=== PATIENT | male | born 1980 | race American Indian/Alaskan Native ===

== ENCOUNTER 2017-09-03 20:19 | Emergency (ER) | payer OTHER ==
[2017-09-03] MEDS ORDERED: NACL 0.9% 1000 ML 1,000 ML IV ONE (20:50)
[2017-09-03] MEDS ORDERED: D50W (25GM) Syringe IV ONE (21:00)
[2017-09-03] MEDS ORDERED: D50W (25GM) Vial IV ONE (21:00)
[2017-09-03 21:24] LABS: Urine Drugs of Abuse Note Disclamer
[2017-09-03] MEDS ORDERED: D50W (25GM) Vial 50 ML IV ONE (21:33)
[2017-09-03 21:38] LABS: Bacteria,Urine 1+ /HPF (Negative); Bilirubin,Urine NEG (Negative); Blood,Urine NEG (Negative); Ketones,Urine TR mg/dL (Negative); Leukocyte Esterase,Urine NEG (Negative); Mucus,Urine 2+ /HPF; Nitrite,Urine NEG (Negative); Urobilinogen,Urine < 2.0 mg/dL (<2.0)
[2017-09-03 21:40] LABS: Basophils % (Auto) 0.5 % (0.0-1.8); Eosinophils % (Auto) 0.6 % (0.0-4.3); Hematocrit 37.6 % (35.5-45.6); Hemoglobin 12.6 gm/dl (11.8-15.2); Mean Corpuscular HGB Conc 34 % (32-34); Mean Corpuscular Hemoglobin 30 pg (28-32); Mean Corpuscular Volume 90 fl (84-94); Platelet Count 374 K/mm3 (140-440); Red Blood Count 4.19 M/mm3 (3.65-5.03); Red Cell Distribution Width 14.7 % (13.2-15.2)
[2017-09-03 21:47] LABS: Alanine Aminotransferase 15 units/L (7-56); Albumin 4.5 g/dL (3.9-5); Albumin/Globulin Ratio 1.7 %; Alkaline Phosphatase 65 units/L (35-129); Anion Gap 19 mmol/L; BUN/Creatinine Ratio 20; Blood Urea Nitrogen 14 mg/dL (9-20); Calcium 9.5 mg/dL (8.4-10.2); Carbon Dioxide 26 mmol/L (22-30); Potassium 3.8 mmol/L (3.6-5.0); Sodium 148 mmol/L (137-145); Total Protein 7.1 g/dL (6.3-8.2)
[2017-09-03 21:50] LABS: Glucose 23 mg/dL (75-100)
[2017-09-04] MEDS ORDERED: XYLOCAINE 1% MPF 5 mL INFILTRATI ONE (00:25)
[2017-09-04] MEDS ORDERED: ROCEPHIN IM ONE (00:25)
--- NOTE | 2017-09-04 00:38 | Emergency Department Report ---
History of Present Illness - General Chief Complaint: Overdose Stated Complaint: OVERDOSE Time Seen by Provider: 09/03/17 21:53 Source: patient, family, EMS Mode of arrival: Stretcher Limitations: Altered Mental Status - History of Present Illness Initial Comments: Patient with cocaine use for twelve hours but was seen unconscious by father at which time EMS was called and narcan x 3 was given. Blood glucose was also in the teens on arrival. Upon arrival here his glucose was in the 20s and we gave glucagon. His glucose increased to the low 100s. -: This evening Intent: other (No suicide attempt.) How Overdose Was Discovered: family/friend present Context: Accidental Overdose: wanted to get high Associated Symptoms: palpitations Treatments Prior to Arrival: narcan - Related Data Previous Rx's Medication Instructions Recorded Last Taken Type Cephalexin [Keflex] 500 mg PO Q8HR 10 Days #30 cap 09/04/17 Unknown Rx Allergies Allergy/AdvReac Type Severity Reaction Status Date / Time No Known Drug Allergies AdvReac Unknown Verified 09/03/17 20:50 ED Review of Systems ROS: Stated complaint: OVERDOSE Other details as noted in HPI Comment: after patient was responsive and glucocse had gone up. Constitutional: denies: chills, fever Eyes: denies: eye pain, eye discharge, vision change ENT: denies: ear pain, throat pain Respiratory: denies: cough, shortness of breath, wheezing Cardiovascular: palpitations. denies: chest pain Endocrine: no symptoms reported Gastrointestinal: denies: abdominal pain, nausea, diarrhea Genitourinary: denies: urgency, dysuria Musculoskeletal: denies: back pain, joint swelling, arthralgia Skin: denies: rash, lesions Neurological: denies: headache, weakness, paresthesias Psychiatric: denies: anxiety, depression Hematological/Lymphatic: denies: easy bleeding, easy bruising ED Past Medical Hx - Past Medical History Previous Medical History?: Yes Hx Diabetes: Yes - Social History Smoking Status: Unknown if ever smoked Substance Use Type: Cocaine, Marijuana - Medications Home Medications: Home Medications Medication Instructions Recorded Confirmed Last Taken Type Cephalexin [Keflex] 500 mg PO Q8HR 10 Days #30 cap 09/04/17 Unknown Rx ED Physical Exam - General Limitations: Altered Mental Status General appearance: alert, in no apparent distress - Head Head exam: Present: atraumatic, normocephalic - Eye Eye exam: Present: normal appearance - ENT ENT exam: Present: mucous membranes moist - Neck Neck exam: Present: normal inspection - Respiratory Respiratory exam: Present: normal lung sounds bilaterally. Absent: respiratory distress - Cardiovascular Cardiovascular Exam: Present: normal rhythm, tachycardia. Absent: systolic murmur, diastolic murmur, rubs, gallop - GI/Abdominal GI/Abdominal exam: Present: soft, normal bowel sounds - Rectal Rectal exam: Present: deferred - Extremities Exam Extremities exam: Present: normal inspection - Back Exam Back exam: Present: normal inspection - Neurological Exam Neurological exam: Present: alert, oriented X3 - Psychiatric Psychiatric exam: Present: normal affect, normal mood - Skin Skin exam: Present: warm, dry, intact, normal color. Absent: rash ED Course Vital Signs 09/03/17 09/03/17 09/03/17 20:40 20:42 20:45 Temperature 97.4 F L Pulse Rate 83 95 H 79 Respiratory 23 19 Rate Blood Pressure 118/70 120/65 O2 Sat by Pulse 92 94 93 Oximetry 09/03/17 09/03/17 09/03/17 21:00 21:15 21:30 Temperature Pulse Rate 79 74 76 Respiratory 26 H 0 L 16 Rate Blood Pressure 120/65 120/66 120/66 O2 Sat by Pulse 94 93 100 Oximetry 09/03/17 09/03/17 09/03/17 21:45 22:00 22:16 Temperature Pulse Rate 84 94 H 92 H Respiratory 17 13 15 Rate Blood Pressure 116/77 116/77 124/86 O2 Sat by Pulse 98 100 100 Oximetry 09/03/17 09/03/17 09/03/17 22:37 22:45 23:00 Temperature Pulse Rate 95 H 104 H 110 H Respiratory 17 10 L 20 Rate Blood Pressure 126/76 116/84 O2 Sat by Pulse 100 100 100 Oximetry 09/03/17 09/03/17 09/03/17 23:15 23:30 23:38 Temperature Pulse Rate 98 H 102 H 105 H Respiratory 20 20 12 Rate Blood Pressure 116/67 124/83 124/83 O2 Sat by Pulse 99 100 98 Oximetry 09/03/17 09/04/17 09/04/17 23:45 00:00 00:15 Temperature Pulse Rate 102 H 107 H 106 H Respiratory 15 13 17 Rate Blood Pressure 116/81 116/81 103/79 O2 Sat by Pulse 98 98 99 Oximetry ED Medical Decision Making - Lab Data Result diagrams: 09/03/17 21:04 09/03/17 21:04 He was hypoglycemic and now has resolved. Urine was consistent with UTI. - EKG Data -: EKG Interpreted by Me EKG shows normal: sinus rhythm, axis, intervals, QRS complexes, ST-T waves Rate: tachycardia - EKG Data Interpretation: normal EKG - Medical Decision Making Patient had hypoglycemia from not eating and taking his lantus this afternoon when he missed his bedtime dose from yesterday. Additionally he was doing cocaine all night long and was metabolizing glucose much more rapidly than normal. He has not maintained his glucose and we will send him home. He did not intentionally try to harm himself. He also has a UTI which we gave him rocephin 1 gm and will do keflex as outpatient. Critical care attestation.: If time is entered above; I have spent that time in minutes in the direct care of this critically ill patient, excluding procedure time. ED Disposition Clinical Impression: Hypoglycemia due to insulin, Cocaine abuse UTI (urinary tract infection) Qualifiers: Urinary tract infection type: acute cystitis Hematuria presence: without hematuria Qualified Code(s): N30.00 - Acute cystitis without hematuria Disposition: DC-01 TO HOME OR SELFCARE Is pt being admited?: No Does the pt Need Aspirin: No Condition: Good Instructions: Cocaine Abuse (ED), Diabetic Hypoglycemia (ED), Urinary Tract Infection in Men (ED) Prescriptions: Cephalexin [Keflex] 500 mg PO Q8HR 10 Days #30 cap Referrals: [facility] [Outside] - 3-5 Days Time of Disposition: 00:46
[2017-09-04] MEDS ORDERED: XYLOCAINE 1% 20 mL ONE (00:57)
[2017-09-04 03:19] VITALS: BP 165/70
== END 2017-09-04 01:02 | disposition home or self-care (01) ==
LOC: ED 20:19
DX: E11.649 Type 2 diabetes mellitus with hypoglycemia without coma (principal); F14.10 Cocaine abuse, uncomplicated; N30.00 Acute cystitis without hematuria; F12.10 Cannabis abuse, uncomplicated; Z79.899 Other long term (current) drug therapy
CPT/HCPCS: 36415; 80053; 80307; 81001; 82140; 82962; 83735; 84443; 85025; 93005; 93010; 96361; 96372; 96374; 99284; G0480; J0696; J7030; 80320

== ENCOUNTER 2018-02-24 09:42 | Emergency (ER) | payer OTHER ==
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
[2018-02-24 14:25] LABS: Alanine Aminotransferase 18 units/L (7-56); Albumin 4.3 g/dL (3.9-5); BUN/Creatinine Ratio 16; Blood Urea Nitrogen 14 mg/dL (9-20); Calcium 9.5 mg/dL (8.4-10.2); Hemolysis Index 12
[2018-02-24 14:25] LABS: Bilirubin,Urine NEG (Negative); Blood,Urine NEG (Negative); Color,Urine Yellow (Yellow); Protein,Urine <15 mg/dL mg/dL (Negative); Urobilinogen,Urine < 2.0 mg/dL (<2.0); WBC,Urine < 1.0 /HPF (0.0-6.0)
[2018-02-24 14:29] LABS: Basophils % (Auto) 0.6 % (0.0-1.8); Eosinophils # (Auto) 0.3 K/mm3 (0.0-0.4); Hematocrit 39.7 % (35.5-45.6); Hemoglobin 13.2 gm/dl (11.8-15.2); Lymphocytes # (Auto) 2.5 K/mm3 (1.2-5.4); Lymphocytes % (Auto) 35.9 % (13.4-35.0); Mean Corpuscular HGB Conc 33 % (32-34); Mean Corpuscular Hemoglobin 30 pg (28-32); Mean Corpuscular Volume 89 fl (84-94); Monocytes # (Auto) 0.6 K/mm3 (0.0-0.8); Monocytes % (Auto) 8.5 % (0.0-7.3); Platelet Count 415 K/mm3 (140-440); Red Blood Count 4.46 M/mm3 (3.65-5.03)
[2018-02-24] MEDS ORDERED: HumuLIN R SUB-Q ONE ×2 (14:56→17:17)
[2018-02-24 14:59] LABS: Amphetamine Screen,Urine PRESUMPTIVE NEGATIVE; Cannabinoid Screen,Urine PRESUMPTIVE NEGATIVE; Methadone Screen,Urine PRESUMPTIVE NEGATIVE; Opiate Screen,Urine PRESUMPTIVE NEGATIVE
[2018-02-24 15:27] LABS: Benzodiazepines Screen,Urine PRESUMPTIVE POSITIVE; Cocaine Screen,Urine PRESUMPTIVE POSITIVE
[2018-02-24 15:53] VITALS: BP 132/72
[2018-02-24] MEDS ORDERED: HumuLIN R ONE (17:17)
== END 2018-02-24 18:47 ==
LOC: ED 09:42 → EEVIPCON 09:42 → ED 18:47
DX: F10.129 Alcohol abuse with intoxication, unspecified (principal); E11.649 Type 2 diabetes mellitus with hypoglycemia without coma
CPT/HCPCS: 36415; 80053; 80307; 81001; 82962; 85025; 96372; 99283; G0480; 80320; J1815

== ENCOUNTER 2020-04-01 22:08 | Emergency (ER) | payer BC, OTHER ==
[2020-04-01 22:21] VITALS: BP 140/88
--- NOTE | 2020-04-01 23:02 | XRay Report ---
CHEST 2 VIEWS INDICATION / CLINICAL INFORMATION: cough. COMPARISON: None available. FINDINGS: SUPPORT DEVICES: None. HEART / MEDIASTINUM: No significant abnormality. LUNGS / PLEURA: No significant pulmonary or pleural abnormality. No pneumothorax. ADDITIONAL FINDINGS: No significant additional findings. IMPRESSION: 1. No acute findings. Signer Name: Jeffrey Lopez MD Signed: 04/01/2020 10:58 PM Workstation Name: [id number]
[2020-04-02] MEDS ORDERED: ACETAMINOPHEN 500 MG TAB PO ONE (00:16)
[2020-04-02] MEDS ORDERED: IBUPROFEN 600 MG TAB PO ONE ×2 (00:16→00:19)
[2020-04-02] MEDS ORDERED: CYCLOBENZAPRINE 10 MG TAB PO ONE (00:16)
[2020-04-02] MEDS ORDERED: ACETAMINOPHEN 500 MG TAB ONE (00:18)
[2020-04-02] MEDS ORDERED: CYCLOBENZAPRINE 10 MG TAB ONE (00:19)
[2020-04-02] MEDS ORDERED: KETOROLAC 30 MG/1 ML INJ IM ONE (00:54)
--- NOTE | 2020-04-02 00:56 | Emergency Department Report ---
HPI - General Chief Complaint: Upper Respiratory Infection Time Seen by Provider: 04/02/20 00:38 - HPI HPI: This is a 40-year-old male who presents to the emergency department with complaint of a one-week history of a mixed dry and productive cough and ge neralized body aches and pains. He denies any fever. He has a past medical history of insulin-dependent diabetes. He is a tobacco smoker but denies any illicit drug use. He has not taken anything for his symptoms prior to presentation. The patient's girlfriend is currently being seen in a different room in the emergency department for some similar symptoms. No recent travel. No known exposure to anyone with Covid 19. ED Past Medical Hx - Past Medical History Previous Medical History?: Yes Hx Diabetes: Yes - Surgical History Past Surgical History?: No - Social History Smoking Status: Current Every Day Smoker Substance Use Type: Alcohol, Marijuana - Medications Home Medications: Home Medications Medication Instructions Recorded Confirmed Last Taken Type cephALEXin [Keflex] 500 mg PO Q8HR 10 Days #30 cap 09/04/17 Unknown Rx Albuterol Mdi (or & Nicu Only) 2 puff IH QID PRN #8.5 gram 04/02/20 Unknown Rx [ProAir HFA Inhaler] Benzonatate [Tessalon Perles] 100 mg PO Q8HR PRN #20 capsule 04/02/20 Unknown Rx Ibuprofen [Motrin 800 MG tab] 800 mg PO Q8HR PRN #20 tablet 04/02/20 Unknown Rx ED Review of Systems ROS: Stated complaint: COUGHING,BODY SORE Other details as noted in HPI Comment: All other systems reviewed and negative Constitutional: denies: chills, fever Eyes: denies: eye pain, vision change ENT: denies: ear pain, throat pain Respiratory: cough. denies: shortness of breath Cardiovascular: denies: chest pain, palpitations Gastrointestinal: denies: abdominal pain, vomiting Genitourinary: denies: dysuria, discharge Musculoskeletal: myalgia. denies: joint swelling Skin: denies: rash, lesions Neurological: denies: headache, weakness Physical Exam - Physical Exam Vital Signs: Vital Signs 04/01/20 22:18 Temperature 98.8 F Pulse Rate 95 H Respiratory 20 Rate Blood Pressure 140/88 O2 Sat by Pulse 97 Oximetry Physical Exam: GENERAL: The patient is well-developed well-nourished. HENT: Normocephalic. Atraumatic. Patient has moist mucous membranes. EYES: Extraocular motions are intact. NECK: Supple. Trachea is midline. CHEST/LUNGS: Clear to auscultation. No tachypnea or accessory muscle use. A dry cough heard during examination. There is no respiratory distress noted. HEART/CARDIOVASCULAR: Regular. There is no tachycardia. ABDOMEN: Abdomen is soft, nontender. Patient has normal bowel sounds. SKIN: Skin is warm and dry. NEURO: The patient is awake, alert, and oriented. The patient is cooperative. Normal speech. MUSCULOSKELETAL: There is no tenderness or deformity. ED Course Vital Signs 04/01/20 22:18 Temperature 98.8 F Pulse Rate 95 H Respiratory 20 Rate Blood Pressure 140/88 O2 Sat by Pulse 97 Oximetry ED Medical Decision Making - Radiology Data Radiology results: image reviewed interpreted by me: Chest x-ray does not show any acute process. There are no pleural effusions, obvious pneumonia and there is no pneumothorax. - Medical Decision Making This patient presents with a one-week history of a mixed dry and productive cough and body aches. He denies any fever, shortness of breath, chest pain. On examination there is a dry cough heard during examination but there is no tachypnea, accessory muscle use or signs of any respiratory or acute distress. Chest x-ray does not show any pneumonia, pleural effusions, pneumothorax, focal consolidation, or any other acute process. As the patient has a history of diabetes an Accu-Chek was obtained and his blood sugar came back at about 33. The patient was given some juice and food to eat/drink and his blood sugar came up to about 200. Patient appears to have a viral upper respiratory infection. Given this current pandemic it is possible he could have Covid 19. However he does not have any fever, signs of pneumonia, hypoxia, or any indication that he needs inpatient admission at this time. We discussed staying away from those that are elderly, immunocompromised and chronically ill/debilitated. We discussed self quarantine/isolation and seeking outpatient Covid 19 testing. He has been given a prescription for an albuterol inhaler, Tessalon Perles for cough and ibuprofen for his body aches. He will return to the ER with any worsening of his symptoms or any acute distress. Critical Care Time: No Critical care attestation.: If time is entered above; I have spent that time in minutes in the direct care of this critically ill patient, excluding procedure time. ED Disposition Clinical Impression: Hypoglycemia Upper respiratory infection Qualifiers: URI type: unspecified viral URI Qualified Code(s): J06.9 - Acute upper respiratory infection, unspecified Disposition: DC-01 TO HOME OR SELFCARE Is pt being admited?: No Condition: Stable Instructions: COVID-19, Diabetic Hypoglycemia (ED), Upper Respiratory Infection (ED) Additional Instructions: Please follow-up with a primary care physician in the next few days. Return to the emergency department with any worsening of your symptoms or any acute distress. With your complaints of body aches and a cough, you appear to have a viral upper respiratory infection. Given this current pandemic, I cannot rule out that you could have Covid 19. Unfortunately I am unable to test you for this at this time. You should make sure that you stay away from anyone who is elderly, immunocompromised or chronically ill/debilitated. I recommend seeking outpatient Covid 19 testing. This can be done at some primary care offices, some urgent cares, and there should be a list of testing facilities through the [facility]. Prescriptions: Ibuprofen [Motrin 800 MG tab] 800 mg PO Q8HR PRN #20 tablet PRN Reason: Pain , Severe (7-10) Albuterol Mdi (or & Nicu Only) [ProAir HFA Inhaler] 2 puff IH QID PRN #8.5 gram PRN Reason: Shortness Of Breath Benzonatate [Tessalon Perles] 100 mg PO Q8HR PRN #20 capsule PRN Reason: Cough Referrals: NOEMÍ BURGOS [Primary Care Provider] - 2-3 Days Time of Disposition: 03:38
== END 2020-04-02 04:10 | disposition home or self-care (01) ==
LOC: ED 22:08
DX: J06.9 Acute upper respiratory infection, unspecified (principal); E11.649 Type 2 diabetes mellitus with hypoglycemia without coma; F17.200 Nicotine dependence, unspecified, uncomplicated; F12.10 Cannabis abuse, uncomplicated; Z79.1 Long term (current) use of non-steroidal anti-inflammatories (NSAID); Z79.899 Other long term (current) drug therapy
CPT/HCPCS: 71046; 96372; 99283; J1885